=== PATIENT | male | born 1995 | race Caucasian/White ===

== ENCOUNTER 2018-02-04 16:40 | Emergency (ER) | payer SELFPAY ==
[~2018-02-04] VITALS: Ht 188 cm; Wt 63.5 kg
[2018-02-04 17:23] VITALS: BP 106/72
[2018-02-04 18:02] LABS: Basophils # (auto) 0 uL; Basophils % (auto) 0.3 % (0.0-2.0); Eosinophils # (auto) 0.2 uL; Eosinophils % (auto) 1.4 % (0.0-7.0); Hematocrit 47.9 % (41.0-53.0); Hemoglobin 16.3 g/dL (13.5-17.5); Lymphocytes # (auto) 2.9 uL; Lymphocytes % (auto) 25.9 % (10.0-50.0); Mean Corpuscular Hemoglobin 30.5 pg (28.0-32.0); Mean Corpuscular Volume 89.6 fL (80.0-100.0); Monocytes % (auto) 8.8 % (0.0-12.0); Neutrophils % (auto) 63.6 % (37.0-80.0); Platelet Count (auto) 313 10^3/uL (140-450); Red Blood Cells 5.34 10^6/uL (4.5-5.90); Red Cell Distribution Width 12.9 % (11.8-14.3)
[2018-02-04 18:20] LABS: Albumin 4.8 g/dL (3.4-5.0); BUN/Creatinine Ratio 12.3; Bilirubin, Total 0.5 mg/dL (0.2-1.0); Calcium 9.3 mg/dL (8.5-10.1); Potassium 4.1 mmol/L (3.5-5.1); Total Protein 8.3 g/dL (6.4-8.2)
== END 2018-02-05 00:08 | disposition left against medical advice (07) ==
LOC: ER 16:56
DX: K92.0 Hematemesis (principal); R10.9 Unspecified abdominal pain; Z53.21 Procedure and treatment not carried out due to patient leaving prior to being seen by health care provider
CPT/HCPCS: 36415; 71046; 80053; 85025

== ENCOUNTER 2022-01-21 15:50 | Inpatient (IN) | payer MEDICAID ==
[~2022-01-21] VITALS: Ht 182.9 cm; Wt 65.9 kg
[2022-01-21] MEDS ORDERED: SODIUM CHLORIDE 0.9% 1,000 ML IV ONE (16:45)
[2022-01-21 17:01] LABS: Basophils # (auto) 0.1 10 ^3/uL (0-0.2); Basophils % (auto) 0.7 % (0.0-2.0); Eosinophils # (auto) 0.2 10 ^3/uL (0-0.8); Eosinophils % (auto) 1.6 % (0.0-7.0); Hemoglobin 14.9 g/dL (13.5-17.5); Lymphocytes # (auto) 3.4 10 ^3/uL (0.4-5.4); Lymphocytes % (auto) 26.8 % (10.0-50.0); Mean Corpuscular Hemoglobin 30.4 pg (28.0-32.0); Mean Corpuscular Hgb Conc. 34.6 g/dL (32.0-36.0); Mean Corpuscular Volume 87.8 fL (80.0-100.0); Monocytes # (auto) 1.1 10 ^3/uL (0-1.3); Monocytes % (auto) 8.7 % (0.0-12.0); Neutrophils # (auto) 7.8 10 ^3/uL (1.6-8.6); Neutrophils % (auto) 62.2 % (37.0-80.0); Nucleated Red Blood Cells % 0.1 %; Red Cell Distribution Width 13.2 % (11.8-14.3); White Blood Cell 12.6 10^3/uL (4.4-10.8)
[2022-01-21 17:11] LABS: Albumin 4.2 g/dL (3.4-5.0); Calcium 9.4 mg/dL (8.5-10.1); Potassium 4.1 mmol/L (3.5-5.1)
[2022-01-21 17:14] LABS: BUN/Creatinine Ratio 11.3; Bilirubin, Total 0.4 mg/dL (0.2-1.0); Total Protein 7.7 g/dL (6.4-8.2)
[2022-01-21] MEDS ORDERED: IOHEXOL 300 MG/ML 100ML BOTTLE IJ ONE (17:31)
[2022-01-21 20:21] LABS: Urine Bacteria FEW /hpf (None Seen); Urine Blood Negative /uL (Negative); Urine Specific Gravity 1.023 (1.001-1.035); Urine Sperm PRESENT /hpf (None Seen); Urine WBC 4 /hpf (0 - 3)
[2022-01-21 20:35] LABS: Amphetamine Screen, Urine NEGATIVE (NEGATIVE); Barbiturate Scree,Urine NEGATIVE (NEGATIVE); Benzodiazephine Screen, Urine NEGATIVE (NEGATIVE); Cannabinoid Screen, Urine POSITIVE (NEGATIVE); Cocaine Screen, Urine NEGATIVE (NEGATIVE); Opiate Scree,Urine NEGATIVE (NEGATIVE); Phencyclidine Screen, Urine NEGATIVE (NEGATIVE)
[2022-01-21] MEDS ORDERED: fentaNYL CITRATE 100 MCG/2 ML VL IV ONE (21:45)
[2022-01-22] MEDS ORDERED: metroNIDAZOLE 500MG/100ML 100 ML IV ONE (00:45)
[2022-01-22] MEDS ORDERED: cefTRIAXone 1GM/50ML D5W 50 ML IV ONE (00:45)
[2022-01-22] MEDS: SODIUM CHLORIDE 0.9% 1,000 ML IV SCH ×3 (00:54→23:31)
[2022-01-22] MEDS: metroNIDAZOLE 500MG/100ML 100 ML IV SCH ×3 (06:09→21:44)
[2022-01-22 07:59] LABS: Basophils # (auto) 0 10 ^3/uL (0-0.2); Basophils % (auto) 0.6 % (0.0-2.0); Eosinophils # (auto) 0.4 10 ^3/uL (0-0.8); Hematocrit 39.2 % (41.0-53.0); Hemoglobin 13.7 g/dL (13.5-17.5); Lymphocytes # (auto) 3.2 10 ^3/uL (0.4-5.4); Lymphocytes % (auto) 39.2 % (10.0-50.0); Mean Corpuscular Hemoglobin 31.2 pg (28.0-32.0); Mean Corpuscular Volume 89.1 fL (80.0-100.0); Monocytes # (auto) 0.7 10 ^3/uL (0-1.3); Monocytes % (auto) 8.1 % (0.0-12.0); Neutrophils # (auto) 3.9 10 ^3/uL (1.6-8.6); Neutrophils % (auto) 47.1 % (37.0-80.0); Nucleated Red Blood Cells % 0.1 %; Red Cell Distribution Width 12.9 % (11.8-14.3); White Blood Cell 8.2 10^3/uL (4.4-10.8)
[2022-01-22 08:15] LABS: Potassium 4.4 mmol/L (3.5-5.1)
[2022-01-22 08:19] LABS: Albumin 3.5 g/dL (3.4-5.0); BUN/Creatinine Ratio 10.6; Calcium 8.7 mg/dL (8.5-10.1)
[2022-01-22 08:22] LABS: Bilirubin, Total 0.6 mg/dL (0.2-1.0)
[2022-01-22] MEDS: MORPHINE SULFATE INJECTION 2 MG/ML SYRG IV PRN ×3 (10:53→20:53)
[2022-01-22] MEDS ORDERED: PANTOPRAZOLE 40 MG/10 ML VIAL INJ IV SCH (12:00)
[2022-01-22 13:00] VITALS: BP 115/62
[2022-01-22] MEDS: SUCRALFATE 1 GM/10 ML ORAL SUSP PO SCH ×3 (13:34→21:44)
[2022-01-22] MEDS: PANTOPRAZOLE 40 MG TAB PO SCH ×2 (13:34→21:45)
[2022-01-22 16:55] VITALS: BP 113/79
[2022-01-22] MEDS: cefTRIAXone 1GM/50ML D5W 50 ML IV SCH (20:53)
[2022-01-22 21:44] VITALS: BP 116/74
[2022-01-23 05:08] VITALS: BP 107/61
[2022-01-23] MEDS: metroNIDAZOLE 500MG/100ML 100 ML IV SCH ×3 (05:32→22:14)
[2022-01-23] MEDS: SODIUM CHLORIDE 0.9% 1,000 ML IV SCH ×2 (06:45→16:45)
[2022-01-23 06:52] LABS: Basophils # (auto) 0.1 10 ^3/uL (0-0.2); Eosinophils # (auto) 0.3 10 ^3/uL (0-0.8); Eosinophils % (auto) 3.6 % (0.0-7.0); Hematocrit 40.8 % (41.0-53.0); Hemoglobin 14.3 g/dL (13.5-17.5); Lymphocytes # (auto) 2.9 10 ^3/uL (0.4-5.4); Lymphocytes % (auto) 31.8 % (10.0-50.0); Mean Corpuscular Hgb Conc. 35.1 g/dL (32.0-36.0); Mean Corpuscular Volume 88.5 fL (80.0-100.0); Monocytes # (auto) 0.7 10 ^3/uL (0-1.3); Monocytes % (auto) 8.1 % (0.0-12.0); Neutrophils # (auto) 5.1 10 ^3/uL (1.6-8.6); Neutrophils % (auto) 55.5 % (37.0-80.0); Nucleated Red Blood Cells % 0.1 %; Red Blood Cells 4.62 10^6/uL (4.5-5.90); Red Cell Distribution Width 13.2 % (11.8-14.3); White Blood Cell 9.2 10^3/uL (4.4-10.8)
[2022-01-23] MEDS: SUCRALFATE 1 GM/10 ML ORAL SUSP PO SCH ×4 (06:55→22:13)
[2022-01-23 08:56] VITALS: BP 14/69
[2022-01-23 09:38] LABS: Hepatitis B Surface Antibody Negative (Negative)
[2022-01-23 10:02] LABS: Hepatitis A Total Antibody Positive (Negative)
[2022-01-23] MEDS: PANTOPRAZOLE 40 MG TAB PO SCH ×2 (10:37→22:14)
[2022-01-23 12:39] VITALS: BP 101/64
[2022-01-23] MEDS: MORPHINE SULFATE 4 MG/ML SYR/VIAL IV PRN ×3 (12:45→22:26)
[2022-01-23 13:10] LABS: Hepatitis C Antibody Negative (Negative)
[2022-01-23] MEDS ORDERED: HYOSCYAMINE SULF 0.125 MG ODT TAB PO PRN (15:00)
[2022-01-23] MEDS: ONDANSETRON HCL 4 MG/2 ML VIAL IV PRN ×2 (16:21→22:25)
[2022-01-23 16:35] VITALS: BP 112/67
[2022-01-23] MEDS: cefTRIAXone 1GM/50ML D5W 50 ML IV SCH (22:14)
[2022-01-23 23:42] VITALS: BP 131/90
[2022-01-24] MEDS: SODIUM CHLORIDE 0.9% 1,000 ML IV SCH ×2 (02:45→06:30)
[2022-01-24 04:55] VITALS: BP 126/69
[2022-01-24] MEDS: metroNIDAZOLE 500MG/100ML 100 ML IV SCH ×2 (05:52→14:00)
[2022-01-24] MEDS: SUCRALFATE 1 GM/10 ML ORAL SUSP PO SCH ×2 (06:30→12:34)
[2022-01-24 08:00] VITALS: BP 113/49
[2022-01-24 09:00] VITALS: BP 113/49
[2022-01-24] MEDS: PANTOPRAZOLE 40 MG TAB PO SCH (09:45)
[2022-01-24] MEDS ORDERED: PANT40T PO (11:56)
[2022-01-24] MEDS ORDERED: METR500T PO (11:56)
[2022-01-24] MEDS ORDERED: SUCR1TAB22 OR (11:56)
[2022-01-24] MEDS ORDERED: HYOS0.1289 PO (11:56)
[2022-01-24 13:00] VITALS: BP 111/57
[2022-01-24 15:28] VITALS: BP 111/59
== END 2022-01-24 16:00 | disposition home or self-care (01) | DRG 243 ==
LOC: ER 15:50 → OVERFLOW 23:54 → WEST WING 01-22 08:16
PROVIDERS: ADMIT Registered Nurse; ATTEND Internal Medicine
DX: K21.9 Gastro-esophageal reflux disease without esophagitis (principal); K76.6 Portal hypertension; K76.0 Fatty (change of) liver, not elsewhere classified; F12.90 Cannabis use, unspecified, uncomplicated; G89.29 Other chronic pain; J45.909 Unspecified asthma, uncomplicated; K29.70 Gastritis, unspecified, without bleeding; K92.1 Melena; Z20.822 Contact with and (suspected) exposure to COVID-19; Z88.0 Allergy status to penicillin; Z88.1 Allergy status to other antibiotic agents
CPT/HCPCS: 36415; 74177; 76705; 80053; 80307; 81001; 82270; 82705; 82784; 83516; 83605; 83690; 85025; 86255; 86677; 86704; 86706; 86708; 86803; 87040; 87045; 87177; 87340; 87427; 87493; G0378; J0696; J2405; J3490